=== PATIENT | female | born 1975 | race Caucasian/White ===

== ENCOUNTER 2017-09-28 11:32 | Emergency (ER) | payer OTHER ==
[~2017-09-28] VITALS: Ht 170.2 cm; Wt 71.6 kg
[~2017-09-28 11:32] MED LIST: DIFLUCAN150 MG PO; FLAGYL500 MG PO; KEFLEX500 MG PO; MOTRIN800 MG PO; PERCOCET 5/31 TABLET PO
[2017-09-28] MEDS ORDERED: NEURONTIN400 MG PO (12:03)
[2017-09-28 12:26] VITALS: BP 124/86
== END 2017-09-28 12:29 | disposition home or self-care (01) ==
LOC: EME 11:32
DX: G62.9 Polyneuropathy, unspecified (principal); G89.29 Other chronic pain; M79.642 Pain in left hand
CPT/HCPCS: 99281; 99284